=== PATIENT | female | born 1990 | race African-American/Black ===

== ENCOUNTER 2016-07-18 22:25 | Emergency (ER) | payer MEDICAID ==
[~2016-07-18] VITALS: Ht 162.6 cm; Wt 79.0 kg
[2016-07-18 22:27] VITALS: BP 116/80; PULSE 116; RESP 18; TEMP 98.6; O2SAT 98
[2016-07-18] MEDS ORDERED: ONDANSETRON HCL 4 MG/2 ML VIAL IV ONE (23:45)
[2016-07-18] MEDS ORDERED: SODIUM CHLOR 0.9% 1000 ML INJ 1,000 ML IV ONE (23:45)
[2016-07-18 23:57] VITALS: RESP 16; O2SAT 100
[2016-07-19 00:02] LABS: AUTOMATED NEUTROPHIL # 4.6 TH/MM3 (1.8-7.7); BASOPHIL % 0.2 % (0.0-2.0); EOSINOPHIL % 0.7 % (0.0-4.0); HEMATOCRIT 38.5 % (35.0-46.0); HEMO FLAGS DIFF FINAL; LYMPH % 13.1 % (9.0-44.0); LYMPHOCYTE # 0.8 TH/MM3 (1.0-4.8); MEAN CELL VOLUME 69.9 FL (80.0-100.0); MEAN CORPUSCULAR HEMOGLOBIN 22.5 PG (27.0-34.0); MEAN CORPUSCULAR HGB CONC 32.1 % (32.0-36.0); PLATELET COUNT 260 TH/MM3 (150-450); RED BLOOD COUNT 5.51 MIL/MM3 (4.00-5.30); RED CELL DISTRIBUTION WIDTH 17.4 % (11.6-17.2)
[2016-07-19 00:10] LABS: BLOOD, URINE NEG (NEG); GLUCOSE,URINE NEG (NEG); KETONE, URINE 40 mg/dL (NEG); NITRITE,URINE NEG (NEG); URINE COLOR YELLOW (YELLW/STRAW)
--- NOTE | 2016-07-19 00:16 | PD ---
HPI Chief Complaint: GI Complaint Time Seen by Provider: 23:36 Travel History International Travel<30 days: No Contact w/Intl Traveler<30days: No Traveled to known affect area: No History of Present Illness HPI The patient is a 26 year old female who presents to the [facility] emergency department with a history of diarrhea that began yesterday and is continued today every 5 minutes and is associated with generalized abdominal cramping that is worse down in bilateral lower quadrants of the abdomen. She reports that today she's also had nausea and vomiting 3. She denies having any blood in her stool or black or tarry stools. She reports that the stool is green to brown and watery. She denies having any blood in her emesis. She denies any recent antibiotic use, sick contacts, or foreign travel. The patient denies any known recent fevers, cough, congestion, neck pain, chest pain, shortness of breath, urinary symptoms, or neurologic symptoms. LMP: Unknown, history of irregular cycles PFSH Past Medical History Narrative Medical The patient's past medical history is significant for asthma, history of an inguinal hernia on the left side. Asthma: Yes Diminished Hearing: No Inguinal Hernia: Yes Immunizations Current: Yes ?: Unknown : 3 Para: 2 Past Surgical History Narrative Surgical The patient's past surgical history is significant for none. Coronary Stent: No Other Surgery: Yes (labial cyst removed) Social History Alcohol Use: No Tobacco Use: No Substance Use: No Allergies-Medications (Allergen,Severity, Reaction): Coded Allergies: No Known Allergies (Verified , 07/18/16) Reported Meds & Prescriptions Reported Meds & Active Scripts Active Zofran Odt (Ondansetron Odt) 4 Mg Tab 4 Mg SL Q6HR PRN Review of Systems Except as stated in HPI: all other systems reviewed are Neg General / Constitutional: No: Fever Eyes: No: Visual changes HENT: No: Headaches Cardiovascular: No: Chest Pain or Discomfort Respiratory: No: Shortness of Breath Gastrointestinal: Positive: Nausea, Vomiting, Diarrhea, Abdominal Pain, Changes in Bowel Habits, No: Hematemesis, Hematochezia, Indigestion, Loss of Appetite Genitourinary: No: Dysuria Musculoskeletal: No: Pain Skin: No Rash Neurologic: No: Weakness Psychiatric: No: Depression Endocrine: No: Polydipsia Hematologic/Lymphatic: No: Easy Bruising Physical Exam Narrative General: The patient is a well-developed well-nourished female in no acute distress. Head and Neck exam: Head is normocephalic atraumatic. Eyes: EOMI, pupils are equal round and reactive to light. Nose: Midline septum with pink mucous membranes Mouth: Dentition unremarkable. Moist mucus membranes. Posterior oropharynx is not erythematous. No tonsillar hypertrophy. Uvula midline. Airway patent. Neck: No palpable lymphadenopathy. No nuchal rigidity. No thyromegaly. Cardiovascular: Regular rate and rhythm without murmurs, gallops, or rubs. Lungs: Clear to auscultation bilaterally. No wheezes, rhonchi, or rales. Abdomen: Soft, without tenderness to palpation in all 4 quadrants of the abdomen. No guarding, rebound, or rigidity. Normal bowel sounds are audible. No tenderness on palpation of McBurney's point. Negative Bingham sign. Extremities: No clubbing, cyanosis, or edema. 2+ pulses in all 4 extremities. No calf tenderness on palpation. Back: No spinous process tenderness to palpation. No costovertebral angle tenderness to palpation. Neurologic Exam: Grossly nonfocal. Skin Exam: No rash noted. Intact skin that is warm and dry. Data Data Last Documented VS Vital Signs Date Time Temp Pulse Resp B/P Pulse Ox O2 Delivery O2 Flow Rate FiO2 07/18/16 23:57 16 100 Room Air 07/18/16 22:27 98.6 116 116/80 Orders Complete Blood Count With Diff (07/18/16 23:39) Comprehensive Metabolic Panel (07/18/16 23:39) C-Reactive Protein (Crp) (07/18/16 23:39) Lipase (07/18/16 23:39) Urinalysis - C+S If Indicated (07/18/16 23:39) Magnesium (Mg) (07/18/16 23:39) Iv Access Insert/Monitor (07/18/16 23:39) Ecg Monitoring (07/18/16 23:39) Oximetry (07/18/16 23:39) Ed Urine Pregnancytest Poc (07/18/16 23:39) Ondansetron Inj (Zofran Inj) (07/18/16 23:45) Sodium Chlor 0.9% 1000 Ml Inj (Ns 1000 M (07/18/16 23:45) Sodium Chlor 0.9% 1000 Ml Inj (Ns 1000 M (07/19/16 01:00) Oral Rehydration (07/19/16 00:47) Labs Laboratory Tests Test 07/18/16 23:54 White Blood Count 6.0 TH/MM3 Red Blood Count 5.51 MIL/MM3 Hemoglobin 12.4 GM/DL Hematocrit 38.5 % Mean Corpuscular Volume 69.9 FL Mean Corpuscular Hemoglobin 22.5 PG Mean Corpuscular Hemoglobin 32.1 % Concent Red Cell Distribution Width 17.4 % Platelet Count 260 TH/MM3 Mean Platelet Volume 8.9 FL Neutrophils (%) (Auto) 77.0 % Lymphocytes (%) (Auto) 13.1 % Monocytes (%) (Auto) 9.0 % Eosinophils (%) (Auto) 0.7 % Basophils (%) (Auto) 0.2 % Neutrophils # (Auto) 4.6 TH/MM3 Lymphocytes # (Auto) 0.8 TH/MM3 Monocytes # (Auto) 0.5 TH/MM3 Eosinophils # (Auto) 0.0 TH/MM3 Basophils # (Auto) 0.0 TH/MM3 CBC Comment DIFF FINAL Differential Comment Urine Color YELLOW Urine Turbidity HAZY Urine pH 6.0 Urine Specific [place] 1.033 Urine Protein 30 mg/dL Urine Glucose (UA) NEG mg/dL Urine Ketones 40 mg/dL Urine Occult Blood NEG Urine Nitrite NEG Urine Bilirubin NEG Urine Urobilinogen 2.0 MG/DL Urine Leukocyte Esterase NEG Urine WBC 0-2 /hpf Urine Squamous Epithelial 0-5 /hpf Cells Urine Mucus MOD /lpf Microscopic Urinalysis Comment CULT NOT INDICATED Sodium Level 138 MEQ/L Potassium Level 4.6 MEQ/L Chloride Level 108 MEQ/L Carbon Dioxide Level 20.8 MEQ/L Anion Gap 9 MEQ/L Blood Urea Nitrogen 12 MG/DL Creatinine 1.01 MG/DL Estimat Glomerular Filtration 80 ML/MIN Rate Random Glucose 79 MG/DL Calcium Level 9.7 MG/DL Magnesium Level 1.8 MG/DL Total Bilirubin 0.5 MG/DL Aspartate Amino Transf 35 U/L (AST/SGOT) Alanine Aminotransferase 22 U/L (ALT/SGPT) Alkaline Phosphatase 62 U/L C-Reactive Protein 0.88 MG/DL Total Protein 9.1 GM/DL Albumin 4.3 GM/DL Lipase 202 U/L [facility] Medical Decision Making Medical Screen Exam Complete: Yes Emergency Medical Condition: Yes Medical Record Reviewed: Yes Differential Diagnosis Electrolyte derangements, versus dehydration, versus viral versus bacterial gastroenteritis. Narrative Course During the course of the patients emergency department visit, the patients history, examination, and differential diagnosis were reviewed with the patient. The patient had IV access obtained and blood work sent for analysis. The patient states on a director of brand marketing with oximetry and blood pressure monitoring. A bedside test was reportedly negative. The patient was initially provided the patient was given normal saline 1 L IV fluid bolus, Zofran 4 mg IV. The patients laboratory studies were reviewed and remarkable for a white count 6, hemoglobin 12.4, platelets 260 with 77 neutrophils, monocytes 9, CMP is remarkable for chloride of 108, CO2 20.8, creatinine 1.01, C-reactive protein 0.88, lipase 202. The patient was provided a second liter of normal saline IV fluids. Urinalysis shows 40 ketones, 30 protein. The patient was started on oral rehydration therapy. The patient tolerated oral rehydration therapy well. The patient will be discharged home with a prescription for Zofran and instructed to push fluids with an electrolyte rich solution such as Pedialyte or Gatorade. The patient's symptoms are likely related to a viral gastroenteritis. The patient is resting comfortably and feels better, is alert and in no distress. The patients results and examination findings were discussed with the patient. The repeat examination is unremarkable and benign. The history, exam, diagnostic testing, and current condition do not suggest any significant pathology to warrant further testing, continued ED treatment, admission, or surgical evaluation at this point. The vital signs have been stable. The patient does not have uncontrollable pain, intractable vomiting, or other significant symptoms. The patient's condition is stable and appropriate for discharge. The patient will pursue further outpatient evaluation with a primary care physician or other designated or consulting physician as indicated in the discharge instructions. The patient expressed understanding and was agreeable with this plan. Diagnosis Primary Impression: Nausea, vomiting, and diarrhea Referrals: Primary Care Physician 3 days Patient Instructions: Acute Diarrhea (ED), Acute Nausea and Vomiting (ED), General Instructions Med/Other Pt SpecificInfo: Prescription(s) given Scripts Ondansetron Odt (Zofran Odt)4 Mg Tab4 Mg SL Q6HR PRN (Nausea/Vomiting) #7 TAB Ref 0 Prov:Mago Bowden MD 07/19/16 Disposition: 01 DISCHARGE HOME Condition: Stable Mago Bowden MD Jul 19, 2016 00:16
[2016-07-19 00:17] LABS: COMMENT (UR) CULT NOT INDICATED; CULTURE IF INDICATED CULT NOT INDICATED; MUCUS URINE MOD /lpf (OCC); SQUAMOUS EPITHELIAL CELL URINE 0-5 /hpf (0-5); WBC, URINE 0-2 /hpf (0-5)
[2016-07-19 00:21] LABS: ALKALINE PHOSPHATASE 62 U/L (45-117); ALT (GPT) 22 U/L (10-53); TOTAL BILIRUBIN ADULT 0.5 MG/DL (0.2-1.0)
[2016-07-19 00:29] LABS: ANION GAP 9 MEQ/L (5-15); AST (GOT) 35 U/L (15-37); BICARBONATE 20.8 MEQ/L (21.0-32.0); BLOOD UREA NITROGEN 12 MG/DL (7-18); CHLORIDE 108 MEQ/L (98-107); GLOMERULAR FILTRATION RATE 80 ML/MIN (>89); MAGNESIUM 1.8 MG/DL (1.5-2.5); SODIUM (NA) 138 MEQ/L (136-145)
[2016-07-19 00:30] LABS: POTASSIUM 4.6 MEQ/L (3.5-5.1)
[2016-07-19] MEDS ORDERED: SODIUM CHLOR 0.9% 1000 ML INJ 1,000 ML IV ONE (01:00)
[2016-07-19] MEDS ORDERED: ZOFR4TAB3 SL (01:09)
[2016-07-19] MEDS ORDERED: KETOROLAC TROMETHAMINE 30 MG/ML (IVP) VIAL IV PUSH ONE (01:15)
[2016-07-19 02:39] VITALS: BP 120/72; PULSE 70; RESP 18; O2SAT 100
== END 2016-07-19 02:39 | disposition home or self-care (01) ==
LOC: NEPE 22:25
DX: R19.7 Diarrhea, unspecified (principal); R11.2 Nausea with vomiting, unspecified; K40.90 Unilateral inguinal hernia, without obstruction or gangrene, not specified as recurrent
CPT/HCPCS: 80053; 81001; 83690; 83735; 84703; 85025; 86140; 96361; 96374; 96375; 99284; J1885; J2405; J7030

== ENCOUNTER 2016-09-13 13:05 | Emergency (ER) | payer MEDICAID ==
[~2016-09-13] VITALS: Ht 162.6 cm; Wt 75.0 kg
[~2016-09-13 13:05] MED LIST: ZOFR4TAB3 SL
[2016-09-13 13:07] VITALS: BP 136/78; PULSE 112; RESP 14; TEMP 98.2; O2SAT 99
--- NOTE | 2016-09-13 13:14 | PD ---
Physical Exam Time Seen by Provider: 13:13 Narrative 26 y/o female with cp, sob, h/a which started last night. Vital signs reviewed. Seen at triage desk. Awaiting bed placement. Data Data Last Documented VS Vital Signs Date Time Temp Pulse Resp B/P Pulse Ox O2 Delivery O2 Flow Rate FiO2 09/13/16 13:07 98.2 112 14 136/78 99 MDM Medical Record Reviewed: Yes Supervised Visit with JOSTIN: Miguel Boyd Sep 13, 2016 13:14
[2016-09-13] MEDS ORDERED: IBUPROFEN 600 MG TAB PO ONE (15:00)
--- NOTE | 2016-09-13 15:01 | PD ---
HPI Chief Complaint: Respiratory Symptoms Time Seen by Provider: 14:43 Travel History International Travel<30 days: No Contact w/Intl Traveler<30days: No Traveled to known affect area: No History of Present Illness HPI 26-year-old female presents with chest congestion cough and some mild shortness of breath since last night. Patient denies any fever. Denies any sputum production. States just feels little bit more severe than the common cold. Denies any contraception hormones, denies any history of blood clots, denies any history of long travel. Denies any palpitations. Denies any history of high blood pressure high cholesterol or early family history of heart disease. States the chest just feels a little tight. PFSH Past Medical History Asthma: Yes Diminished Hearing: No Inguinal Hernia: Yes Immunizations Current: Yes ?: Not LMP: last week : 3 Para: 2 Past Surgical History Coronary Stent: No Other Surgery: Yes (labial cyst removed) Social History Alcohol Use: No Tobacco Use: No Substance Use: No Allergies-Medications (Allergen,Severity, Reaction): Coded Allergies: No Known Allergies (Verified , 09/13/16) Reported Meds & Prescriptions Reported Meds & Active Scripts Active No Active Prescriptions or Reported Medications Review of Systems Except as stated in HPI: all other systems reviewed are Neg Physical Exam Narrative GENERAL: Well-nourished, well-developed patient. Exhibits a dry cough. Appears to be healthy female. SKIN: Focused skin assessment warm/dry. HEAD: Normocephalic. Atraumatic EYES: No scleral icterus. No injection or drainage. ENT: TMs clear bilaterally, oropharynx minimally erythematous, no swelling tonsils normal. NECK: Supple, trachea midline. No JVD or lymphadenopathy. CARDIOVASCULAR: Regular rate and rhythm without murmurs, gallops, or rubs. RESPIRATORY: Breath sounds equal bilaterally. No accessory muscle use. GASTROINTESTINAL: Abdomen soft, non-tender, nondistended. MUSCULOSKELETAL: No cyanosis, or edema. BACK: Nontender without obvious deformity. No CVA tenderness. Data Data Last Documented VS Vital Signs Date Time Temp Pulse Resp B/P Pulse Ox O2 Delivery O2 Flow Rate FiO2 09/13/16 16:40 82 17 130/81 98 09/13/16 14:47 Room Air 09/13/16 13:07 98.2 Orders Electrocardiogram (7/31/17 ) Chest, Pa & Lat (09/13/16 ) Ed Urine Pregnancytest Poc (09/13/16 14:49) Urinalysis - C+S If Indicated (09/13/16 14:49) Ibuprofen (Motrin) (09/13/16 15:00) Labs Laboratory Tests Test 09/13/16 15:15 Urine Color YELLOW Urine Turbidity HAZY Urine pH 7.0 Urine Specific [place] 1.025 Urine Protein TRACE mg/dL Urine Glucose (UA) NEG mg/dL Urine Ketones NEG mg/dL Urine Occult Blood NEG Urine Nitrite NEG Urine Bilirubin NEG Urine Urobilinogen LESS THAN 2.0 MG/DL Urine Leukocyte Esterase TRACE Urine RBC 1 /hpf Urine WBC 1 /hpf Urine Squamous Epithelial 9 /hpf Cells Urine Hyaline Casts 2 /lpf Urine Mucus MOD /lpf Microscopic Urinalysis Comment CULT NOT INDICATED MDM Medical Decision Making Medical Screen Exam Complete: Yes Emergency Medical Condition: Yes Interpretation(s) EKG shows no sinus rhythm normal axis normal R-wave progression. No concerning ST segment changes. Intervals within normal limits. This normal EKG. Differential Diagnosis URI, pneumonia, ACS highly unlikely, PE is excluded by wells and PERC criteria. Narrative Course Patient roomed emergency department, tachycardia was noted in triage but after being roomed in the emergency department vital signs were taken her pulse 82 respiratory rate is 17. PE was considered but her symptoms are more consistent with viral URI. With her most recent set of vital signs she is excludable by wells and PERC criteria. Given her symptomology think that the risks of pulmonary lives in study outweigh the pretest probability. Discussed symptomatic management of her URI and return to ED criteria. Last 24 hours Impressions Chest X-Ray 09/13/16 0000 Signed Impressions: Service Date/Time: Tuesday, September 13, 2016 15:10 - CONCLUSION: Normal examination. Jaun Cardenas Jr., MD Diagnosis Primary Impression: URI (upper respiratory infection) Qualified Code: J06.9 - Viral upper respiratory tract infection Scripts No Active Prescriptions or Reported Meds Disposition: DISCHARGE HOME Condition: Stable Sukhwinder Bates MD Sep 13, 2016 15:01
--- NOTE | 2016-09-13 15:44 | RADRPT ---
EXAM DATE/TIME: 09/13/2016 15:10 [facility] COMPARISON: CHEST PA & LAT, January 12, 2016, 0:06. INDICATIONS : Cough, chest pain since last night MEDICAL HISTORY : asthma SURGICAL HISTORY : None. ENCOUNTER: Initial ACUITY: 1 day PAIN SCORE: 8/10 LOCATION: Bilateral chest FINDINGS: PA and lateral views of the chest demonstrate the lungs to be symmetrically aerated without evidence of mass, infiltrate or effusion. The cardiomediastinal contours are unremarkable. Osseous structure s are intact. Scoliotic curvature. CONCLUSION: Normal examination. Jaun Cardenas Jr., MD on September 13, 2016 at 15:42 Board Certified Radiologist. This report was verified electronically.
[2016-09-13 15:49] LABS: BLOOD, URINE NEG (NEG); COMMENT (UR) CULT NOT INDICATED; CULTURE IF INDICATED CULT NOT INDICATED; GLUCOSE,URINE NEG (NEG); HYALINE CAST, URINE 2 /lpf (RARE); KETONE, URINE NEG (NEG); MUCUS URINE MOD /lpf (OCC); NITRITE,URINE NEG (NEG); SQUAMOUS EPITHELIAL CELL URINE 9 /hpf (0-5); URINE COLOR YELLOW (YELLW/STRAW)
[2016-09-13 16:40] VITALS: BP 130/81
--- NOTE | 2016-09-15 06:59 | EKG ---
Date Performed: 09/13/2016 Time Performed: 13:31:15 PTAGE: 26 years EKG: Sinus rhythm Since previous tracing, no significant change noted NORMAL ECG PREVIOUS TRACING : 01/11/2016 23.48 DOCTOR: Mark Quintana Interpretating Date/Time 09/15/2016 06:58:25
== END 2016-09-13 16:45 | disposition home or self-care (01) ==
LOC: NEPD 13:05
DX: J06.9 Acute upper respiratory infection, unspecified (principal)
CPT/HCPCS: 71020; 81001; 84703; 93005; 99285

== ENCOUNTER 2017-05-11 14:16 | Emergency (ER) | payer SELFPAY ==
[2017-05-11 14:51] VITALS: BP 134/78; PULSE 74; RESP 16; TEMP 98.6; O2SAT 98
--- NOTE | 2017-05-11 15:35 | RADRPT ---
EXAM DATE/TIME: 05/11/2017 15:24 [facility] COMPARISON: CHEST PA & LAT, September 13, 2016, 15:10. INDICATIONS : Patient has cough and chest pain for 4 days. MEDICAL HISTORY : None. SURGICAL HISTORY : None. ENCOUNTER: Initial ACUITY: 4 - 6 days PAIN SCORE: 7/10 LOCATION: mid chest FINDINGS: PA and lateral views of the chest demonstrate the lungs to be symmetrically aerated without evidence of mass, infiltrate or effusion. The cardiomediastinal contours are unremarkable. Osseous structure s are intact. CONCLUSION: No acute disease. No significant change has occurred. Scot Rubalcava MD on May 11, 2017 at 15:32 Board Certified Radiologist. This report was verified electronically.
[2017-05-11] MEDS ORDERED: FAMOTIDINE 20 MG TAB PO ONE (19:15)
[2017-05-11] MEDS ORDERED: ONDANSETRON ODT 4 MG TAB PO ONE (19:15)
[2017-05-11] MEDS ORDERED: ZOFR4TAB3 SL (19:24)
[2017-05-11] MEDS ORDERED: RANI150T PO (19:24)
--- NOTE | 2017-05-11 19:24 | PD ---
HPI Chief Complaint: Respiratory Symptoms Time Seen by Provider: 18:51 Travel History International Travel<30 days: No Contact w/Intl Traveler<30days: No Traveled to known affect area: No History of Present Illness HPI Is a 27-year-old woman who presents to the emergency department complaining of cough nausea vomiting headache chest pain ongoing on for the past couple days. Some shortness of breath. No fevers or chills. No definite sick contacts. Chest pain started after vomiting. Said a couple episodes of this. She otherwise been feeling well and healthy prior to this. History Past Medical History Narrative Medical Asthma in the past Medical History: Denies Significant Hx Tetanus Vaccination: < 5 Years : 3 Para: 2 Past Surgical History Surgical History: No Previous Surgery Social History Alcohol Use: No Tobacco Use: No Allergies-Medications (Allergen,Severity, Reaction): Coded Allergies: No Known Allergies (Verified Adverse Reaction, Unknown, 05/11/17) Reported Meds & Prescriptions Reported Meds & Active Scripts Active Ranitidine (Ranitidine HCl) 150 Mg Tab 150 Mg PO BID Zofran Odt (Ondansetron Odt) 4 Mg Tab 4 Mg SL Q8HR PRN Review of Systems Except as stated in HPI: all other systems reviewed are Neg Physical Exam Narrative GENERAL: Well-appearing 19-year-old woman, no acute distress. SKIN: Focused skin assessment warm/dry. HEAD: Atraumatic. Normocephalic. EYES: Pupils equal and round. No scleral icterus. No injection or drainage. ENT: No nasal bleeding or discharge. Mucous membranes pink and moist. NECK: Trachea midline. No JVD. CARDIOVASCULAR: Regular rate and rhythm. No murmur appreciated. RESPIRATORY: No accessory muscle use. Clear to auscultation. Breath sounds equal bilaterally. GASTROINTESTINAL: Abdomen soft, non-tender, nondistended. Hepatic and splenic margins not palpable. MUSCULOSKELETAL: No obvious deformities. No clubbing. No cyanosis. No edema. NEUROLOGICAL: Awake and alert. No obvious cranial nerve deficits. Motor grossly within normal limits. Normal speech. PSYCHIATRIC: Appropriate mood and affect; insight and judgment normal. Data Data Last Documented VS Vital Signs Date Time Temp Pulse Resp B/P (MAP) Pulse Ox O2 Delivery O2 Flow Rate FiO2 05/11/17 14:51 98.6 74 16 134/78 (96) 98 Orders Orders Electrocardiogram (05/11/17 ) Chest, Pa & Lat (05/11/17 ) Urinalysis - C+S If Indicated (05/11/17 14:52) Ed Urine Pregnancytest Poc (05/11/17 14:52) Ondansetron Odt (Zofran Odt) (05/11/17 19:15) Famotidine (Pepcid) (05/11/17 19:15) Ed Discharge Order (05/11/17 19:24) [facility] Medical Decision Making Medical Screen Exam Complete: Yes Emergency Medical Condition: Yes Interpretation(s) Chest x-ray negative Differential Diagnosis URI, bronchitis, pneumonia, viral syndrome, other Narrative Course Medical decision making Is a well 19-year-old woman cough cold headache vomiting chest pain some shortness of breath. She looks well. She benign exam. Chest x-ray is negative. Recommend supportive treatment. I think the chest pain is more from vomiting and acid reflux and from chest tightness bronchitis or asthma. Diagnosis Primary Impression: URI (upper respiratory infection) Additional Impression: Nausea & vomiting Additional Instructions: The Zofran as needed for nausea or vomiting. Take ranitidine as prescribed. Use [id number] medications as needed for cough. Return to the emergency department for any new or worsening symptoms. Med/Other Pt SpecificInfo: Prescription(s) given Scripts Ranitidine (Ranitidine) 150 Mg Tab 150 MG PO BID for Heartburn Management, #28 TAB 0 Refills Prov: Anuj Negron MD 05/11/17 Ondansetron Odt (Zofran Odt) 4 Mg Tab 4 MG SL Q8HR Y for Nausea/Vomiting, #21 TAB 0 Refills Prov: Anuj Negron MD 05/11/17 Disposition: 01 DISCHARGE HOME Condition: Stable Anuj Negron MD May 11, 2017 19:24
== END 2017-05-11 19:38 | disposition home or self-care (01) ==
LOC: NEPD 14:16
DX: J06.9 Acute upper respiratory infection, unspecified (principal); R11.2 Nausea with vomiting, unspecified
CPT/HCPCS: 71046; 84703; 99283